=== PATIENT | female | born 1950 | race Caucasian/White ===

== ENCOUNTER 2021-08-26 21:18 | Emergency (ER) | payer MEDICARE, BC ==
[2021-08-26 21:52] VITALS: TEMP 98.2
[2021-08-26 22:53] LABS: Basophils % (A) 1 %; Eosinophils # (A) 0.1 k/uL (0-0.7); Eosinophils % (A) 1 %; HCT 36.4 % (34.0-46.0); Lymphocytes # (A) 1.3 k/uL (1.0-4.8); Lymphocytes % (A) 26 %; MCH 29.1 pg (25.0-35.0); MCHC 32.9 g/dL (31.0-37.0); MCV 88.4 fL (80.0-100.0); Mean Platelet Volume 8.4; Monocytes # (A) 0.3 k/uL (0-1.0); Monocytes % (A) 7 %; Neutrophils # (A) 3.1 k/uL (1.3-7.7); Neutrophils % (A) 63 %; Platelet Count 203 k/uL (150-450); RBC 4.11 m/uL (3.80-5.40); RDW 13.1 % (11.5-15.5); WBC 4.9 k/uL (3.8-10.6)
[2021-08-26 23:05] LABS: ALT 11 U/L (4-34); AST 21 U/L (14-36); African American GFR (CKD) >90 (>60 ml/min/1.73 sqM); Alcohol <10 mg/dL; Alkaline Phosphatase 81 U/L (38-126); Anion Gap 5 mmol/L; Blood Urea Nitrogen 13 mg/dL (7-17); Calcium 9.2 mg/dL (8.4-10.2); Carbon Dioxide 26 mmol/L (22-30); Chloride 105 mmol/L (98-107); Glucose 93 mg/dL (74-99); Non-African American GFR(CKD) 79 (>60 ml/min/1.73 sqM); Potassium 3.7 mmol/L (3.5-5.1); Sodium 136 mmol/L (137-145); Total Bilirubin 0.5 mg/dL (0.2-1.3); Total Protein 6.4 g/dL (6.3-8.2)
--- NOTE | 2021-08-26 23:12 | CT ---
EXAMINATION TYPE: CT brain wo con DATE OF EXAM: 08/26/2021 COMPARISON: HISTORY: Hallucinations and memory loss CT DLP: 1159.4 mGycm Automated exposure control for dose reduction was used. sulci appear normal. There is no mass effect or midline shift. There is no sign of intracranial hemo rrhage. Calvarium is intact. There is mild prominence of the ventricles. IMPRESSION: Minimal cerebral atrophy. No acute intracranial abnormality.
[2021-08-26 23:13] LABS: Partial Thromboplastin Time 24.2 sec (22.0-30.0); Prothrombin Time 10.9 sec (9.0-12.0)
--- NOTE | 2021-08-26 23:14 | XR ---
EXAMINATION TYPE: XR chest 2V DATE OF EXAM: 08/26/2021 COMPARISON: NONE HISTORY: Altered mental status TECHNIQUE: 2 views FINDINGS: Heart is normal. Lungs are clear of infiltrate. No heart failure. There are no hilar masses . Costophrenic angles are clear. IMPRESSION: Normal chest.
--- NOTE | 2021-08-26 23:15 | ED ---
General Adult HPI - General Source: RN notes reviewed <Oliver Farmer - Last Filed: 08/27/21 19:57> - General Source: patient, family Mode of arrival: ambulatory Limitations: no limitations - History of Present Illness -: hour(s) Severity scale (1-10): 0 Consistency: now resolved Improves with: none Worsens with: none Associated Symptoms: denies other symptoms Treatments Prior to Arrival: none <Braeden Rizvi - Last Filed: 08/30/21 12:45> - General Chief complaint: Neuro Symptoms/Deficit Stated complaint: Sent by PCP possible bleed Time Seen by Provider: 08/26/21 22:08 - History of Present Illness Initial comments: P (Oliver Farmer) This patient is 71-year-old woman who presents to have evaluation after she had brief hallucination earlier. The patient had hallucination that she had a brief conversation with her mother. She stated that she thought she saw her mother sitting in the room with her. She went to make tea for her mother and then realized that her mother was not present. Note that the patient's mother is living but was not with her at the time that the episode occurred. The patient discussed this with her physician who recommended that she go and have CAT scan to ensure that she was not having bleeding in her brain. The patient denies headache. She has not had other neurologic symptoms. (Braeden Rizvi) - Related Data Home Medications Medication Instructions Recorded Confirmed Cyanocobalamin (Vitamin B-12) 1,000 mcg PO HS 08/27/21 08/27/21 [Vitamin B-12] Pantoprazole Sodium [Protonix] 40 mg PO HS 08/27/21 08/27/21 Sertraline [Zoloft] 50 mg PO HS 08/27/21 08/27/21 Simvastatin [Zocor] 20 mg PO HS 08/27/21 08/27/21 Vitamin D3 50,000 Iu 1,250 mcg PO FR 08/27/21 08/27/21 prednisoLONE ACETATE 1% OPHTH 1 drop BOTH EYES HS 08/27/21 08/27/21 [Pred Forte 1%] Allergies Allergy/AdvReac Type Severity Reaction Status Date / Time meperidine [From Demerol] Allergy Nausea Verified 08/29/21 13:19 Review of Systems ROS Other: All systems not noted in ROS Statement are negative. <Oliver Farmer - Last Filed: 08/27/21 19:57> ROS Other: All systems not noted in ROS Statement are negative. Constitutional: Denies: fever, chills Eyes: Denies: vision change ENT: Denies: ear pain Respiratory: Denies: cough, dyspnea Cardiovascular: Denies: chest pain, palpitations, edema, syncope Gastrointestinal: Denies: abdominal pain, nausea, vomiting Genitourinary: Denies: dysuria, hematuria Musculoskeletal: Denies: back pain Skin: Denies: rash Neurological: Reports: as per HPI, confusion. Denies: headache, weakness, numbness, paresthesias Psychiatric: Denies: anxiety, depression <Braeden Rizvi - Last Filed: 08/30/21 12:45> ROS Statement: Those systems with pertinent positive or pertinent negative responses have been documented in the HPI. Past Medical History Past Medical History: Eye Disorder Additional Past Medical History / Comment(s): macular degeneration History of Any Multi-Drug Resistant Organisms: None Reported Past Psychological History: No Psychological Hx Reported Smoking Status: Never smoker Past Alcohol Use History: Rare Past Drug Use History: None Reported <Braeden Rizvi - Last Filed: 08/30/21 12:45> General Exam Limitations: no limitations General appearance: alert, in no apparent distress Head exam: Present: atraumatic, normocephalic Eye exam: Present: normal appearance, PERRL, EOMI. Absent: scleral icterus, conjunctival injection, nystagmus ENT exam: Present: normal oropharynx Neck exam: Present: normal inspection, full ROM. Absent: tenderness, meningismus Respiratory exam: Present: normal lung sounds bilaterally. Absent: respiratory distress, wheezes, rales, rhonchi, stridor Cardiovascular Exam: Present: regular rate, normal rhythm, normal heart sounds. Absent: systolic murmur, diastolic murmur, rubs, gallop GI/Abdominal exam: Present: soft. Absent: distended, tenderness, guarding, rebound, rigid, mass Extremities exam: Present: normal inspection, normal capillary refill. Absent: pedal edema, calf tenderness Back exam: Present: normal inspection. Absent: CVA tenderness (R), CVA tenderness (L) Neurological exam: Present: alert, oriented X3, CN II-XII intact. Absent: motor sensory deficit Psychiatric exam: Present: normal affect, normal mood Skin exam: Present: warm, dry, intact, normal color. Absent: rash <Braeden Rizvi - Last Filed: 08/30/21 12:45> Course Vital Signs 08/26/21 08/27/21 08/27/21 21:42 00:07 01:48 Temperature 98.2 F Pulse Rate 76 70 76 Respiratory 18 18 13 Rate Blood Pressure 123/72 110/47 126/68 O2 Sat by Pulse 97 97 Oximetry 08/27/21 02:08 Temperature Pulse Rate 76 Respiratory 15 Rate Blood Pressure 138/77 O2 Sat by Pulse 100 Oximetry EKG Findings - EKG Results: EKG: interpreted by ERMD, sinus rhythm (Rate 69 bpm), normal axis, normal QRS, normal ST/T, no acute changes <Braeden Rizvi - Last Filed: 08/30/21 12:45> Medical Decision Making - Lab Data Result diagrams: 08/26/21 22:41 08/26/21 22:41 <Oliver Farmer - Last Filed: 08/27/21 19:57> - Lab Data Result diagrams: 08/26/21 22:41 08/26/21 22:41 <Braeden Rizvi - Last Filed: 08/30/21 12:45> - Medical Decision Making This patient is a 71-year-old woman who had one episode of hallucination and presents for evaluation. Her workup is unremarkable. The neurologic examination is normal here. Given that she did have remote fall and her physician recommended imaging, we did obtain computed tomography scan. Patient does have prominent ventricles but no definite hydrocephalus. Discussed with patient having appropriate neurologic consultation and suggested MRI and follow- up. We discussed admission, but at this point the patient feels she is stable for outpatient workup and will continue. Discussed return parameters. (Braeden Rizvi) - Lab Data Lab Results 08/26/21 08/26/21 08/26/21 Range/Units 22:41 22:41 22:41 WBC 4.9 (3.8-10.6) k/uL RBC 4.11 (3.80-5.40) m/uL Hgb 12.0 (11.4-16.0) gm/dL Hct 36.4 (34.0-46.0) % MCV 88.4 (80.0-100.0) fL MCH 29.1 (25.0-35.0) pg MCHC 32.9 (31.0-37.0) g/dL RDW 13.1 (11.5-15.5) % Plt Count 203 (150-450) k/uL MPV 8.4 Neutrophils % 63 % Lymphocytes % 26 % Monocytes % 7 % Eosinophils % 1 % Basophils % 1 % Neutrophils # 3.1 (1.3-7.7) k/uL Lymphocytes # 1.3 (1.0-4.8) k/uL Monocytes # 0.3 (0-1.0) k/uL Eosinophils # 0.1 (0-0.7) k/uL Basophils # 0.0 (0-0.2) k/uL PT 10.9 (9.0-12.0) sec INR 1.0 (<1.2) APTT 24.2 (22.0-30.0) sec Sodium (137-145) mmol/L Potassium (3.5-5.1) mmol/L Chloride (98-107) mmol/L Carbon Dioxide (22-30) mmol/L Anion Gap mmol/L BUN (7-17) mg/dL Creatinine (0.52-1.04) mg/dL Est GFR (CKD-EPI)AfAm (>60 ml/min/1.73 sqM) Est GFR (CKD-EPI)NonAf (>60 ml/min/1.73 sqM) Glucose (74-99) mg/dL Calcium (8.4-10.2) mg/dL Total Bilirubin (0.2-1.3) mg/dL AST (14-36) U/L ALT (4-34) U/L Alkaline Phosphatase (38-126) U/L Ammonia (<30) umol/L Troponin I (0.000-0.034) ng/mL Total Protein (6.3-8.2) g/dL Albumin (3.5-5.0) g/dL Urine Color Yellow Urine Appearance Cloudy H (Clear) Urine pH 5.5 (5.0-8.0) Ur Specific [place] 1.017 (1.001-1.035) Urine Protein Negative (Negative) Urine Glucose (UA) Negative (Negative) Urine Ketones 2+ H (Negative) Urine Blood Small H (Negative) Urine Nitrite Negative (Negative) Urine Bilirubin Negative (Negative) Urine Urobilinogen <2.0 (<2.0) mg/dL Ur Leukocyte Esterase Small H (Negative) Urine RBC 4 (0-5) /hpf Urine WBC 19 H (0-5) /hpf Ur Squamous Epith Cells 7 H (0-4) /hpf Urine Bacteria Occasional H (None) /hpf Hyaline Casts 1 (0-2) /lpf Urine Mucus Occasional H (None) /hpf Serum Alcohol mg/dL 08/26/21 08/26/21 08/26/21 Range/Units 22:41 22:41 22:41 WBC (3.8-10.6) k/uL RBC (3.80-5.40) m/uL Hgb (11.4-16.0) gm/dL Hct (34.0-46.0) % MCV (80.0-100.0) fL MCH (25.0-35.0) pg MCHC (31.0-37.0) g/dL RDW (11.5-15.5) % Plt Count (150-450) k/uL MPV Neutrophils % % Lymphocytes % % Monocytes % % Eosinophils % % Basophils % % Neutrophils # (1.3-7.7) k/uL Lymphocytes # (1.0-4.8) k/uL Monocytes # (0-1.0) k/uL Eosinophils # (0-0.7) k/uL Basophils # (0-0.2) k/uL PT (9.0-12.0) sec INR (<1.2) APTT (22.0-30.0) sec Sodium 136 L (137-145) mmol/L Potassium 3.7 (3.5-5.1) mmol/L Chloride 105 (98-107) mmol/L Carbon Dioxide 26 (22-30) mmol/L Anion Gap 5 mmol/L BUN 13 (7-17) mg/dL Creatinine 0.75 (0.52-1.04) mg/dL Est GFR (CKD-EPI)AfAm >90 (>60 ml/min/1.73 sqM) Est GFR (CKD-EPI)NonAf 79 (>60 ml/min/1.73 sqM) Glucose 93 (74-99) mg/dL Calcium 9.2 (8.4-10.2) mg/dL Total Bilirubin 0.5 (0.2-1.3) mg/dL AST 21 (14-36) U/L ALT 11 (4-34) U/L Alkaline Phosphatase 81 (38-126) U/L Ammonia <9 (<30) umol/L Troponin I <0.012 (0.000-0.034) ng/mL Total Protein 6.4 (6.3-8.2) g/dL Albumin 4.0 (3.5-5.0) g/dL Urine Color Urine Appearance (Clear) Urine pH (5.0-8.0) Ur Specific [place] (1.001-1.035) Urine Protein (Negative) Urine Glucose (UA) (Negative) Urine Ketones (Negative) Urine Blood (Negative) Urine Nitrite (Negative) Urine Bilirubin (Negative) Urine Urobilinogen (<2.0) mg/dL Ur Leukocyte Esterase (Negative) Urine RBC (0-5) /hpf Urine WBC (0-5) /hpf Ur Squamous Epith Cells (0-4) /hpf Urine Bacteria (None) /hpf Hyaline Casts (0-2) /lpf Urine Mucus (None) /hpf Serum Alcohol <10 mg/dL Disposition <Oliver Farmer - Last Filed: 08/27/21 19:57> Is patient prescribed a controlled substance at d/c from ED?: No <Braeden Rizvi - Last Filed: 08/30/21 12:45> Clinical Impression: Hallucination Disposition: HOME SELF-CARE Condition: Good Instructions (If sedation given, give patient instructions): Hallucinations (ED) Referrals: Nonstaff,Physician [Primary Care Provider] - 1-2 days Nupur Bundy MD [REFERRING] - 1-2 days
[2021-08-27 01:07] LABS: Appearance,Urine Cloudy (Clear); Bacteria,Urine Occasional /hpf; Bilirubin,Urine Negative (Negative); Blood,Urine Small (Negative); Color,Urine Yellow; Glucose,Urine (UA) Negative (Negative); Hyaline Casts,Urine 1 /lpf (0-2); Ketones,Urine 2+ (Negative); Leukocyte Esterase,Urine Small (Negative); Mucus,Urine Occasional /hpf; Nitrite,Urine Negative (Negative); PH, Urine 5.5 (5.0-8.0); Protein,Urine Negative (Negative); RBC,Urine 4 /hpf (0-5); Specific Gravity,Urine 1.017 (1.001-1.035); Squamous Epithelial Cell,Urine 7 /hpf (0-4); Urobilinogen,Urine <2.0 mg/dL (<2.0); WBC,Urine 19 /hpf (0-5)
[2021-08-27] MEDS ORDERED: SULFAMETH-TMP DS STARTER PACK 2 TAB BTL PO STA (01:48)
[2021-08-27] MEDS ORDERED: SULFAMETHOX-TMP 800-160MG 1 EACH TAB PO STA (01:48)
[2021-08-27 01:49] VITALS: PULSE 76
[2021-08-27 02:09] VITALS: BP 138/77; RESP 15
== END 2021-08-27 02:10 | disposition home or self-care (01) ==
LOC: EC 21:18
DX: R44.3 Hallucinations, unspecified (principal); Z72.89 Other problems related to lifestyle; Z88.5 Allergy status to narcotic agent
CPT/HCPCS: 36415; 93005; 80053; 82140; 84484; 85025; 85610; 85730; 81001; 87086; 71046; 70450; 99285; G0480; 80320

== ENCOUNTER 2021-08-27 18:03 | Inpatient (IN) | payer MEDICARE, BC ==
[2021-08-27] MEDS ORDERED: SODIUM CHLORIDE 0.9% 500 ML 500 ML IV STA (19:43)
[2021-08-27 20:26] LABS: Basophils # (A) 0.1 k/uL (0-0.2); Basophils % (A) 1 %; Eosinophils # (A) 0.1 k/uL (0-0.7); Eosinophils % (A) 2 %; HCT 39.7 % (34.0-46.0); HGB 12.6 gm/dL (11.4-16.0); Lymphocytes # (A) 1.3 k/uL (1.0-4.8); Lymphocytes % (A) 23 %; MCH 27.9 pg (25.0-35.0); MCHC 31.7 g/dL (31.0-37.0); Mean Platelet Volume 8.2; Monocytes # (A) 0.3 k/uL (0-1.0); Monocytes % (A) 6 %; Neutrophils # (A) 3.9 k/uL (1.3-7.7); Neutrophils % (A) 67 %; Platelet Count 222 k/uL (150-450); RBC 4.51 m/uL (3.80-5.40); RDW 13.3 % (11.5-15.5); WBC 5.8 k/uL (3.8-10.6)
[2021-08-27 20:36] LABS: Partial Thromboplastin Time 24.2 sec (22.0-30.0); Prothrombin Time 10.6 sec (9.0-12.0)
[2021-08-27 20:39] LABS: ALT 12 U/L (4-34); AST 22 U/L (14-36); African American GFR (CKD) 71 (>60 ml/min/1.73 sqM); Albumin 4.3 g/dL (3.5-5.0); Alkaline Phosphatase 85 U/L (38-126); Anion Gap 7 mmol/L; Blood Urea Nitrogen 13 mg/dL (7-17); Calcium 9.4 mg/dL (8.4-10.2); Carbon Dioxide 25 mmol/L (22-30); Chloride 105 mmol/L (98-107); Glucose 101 mg/dL (74-99); Magnesium 2.2 mg/dL (1.6-2.3); Non-African American GFR(CKD) 62 (>60 ml/min/1.73 sqM); Potassium 3.8 mmol/L (3.5-5.1); Sodium 137 mmol/L (137-145); Total Bilirubin 0.4 mg/dL (0.2-1.3); Total Protein 6.7 g/dL (6.3-8.2)
--- NOTE | 2021-08-27 21:00 | XR ---
EXAMINATION TYPE: XR chest 1V portable DATE OF EXAM: 08/27/2021 COMPARISON: Yesterday HISTORY: Chest pain TECHNIQUE: FINDINGS: Heart and mediastinum are normal. Lungs are clear. Diaphragm is normal. Bony thorax appears normal. IMPRESSION: Normal chest. No change.
--- NOTE | 2021-08-27 21:59 | ED ---
Neuro HPI - General Source: patient, RN notes reviewed Mode of arrival: ambulatory Limitations: no limitations - History of Present Illness Is the patient presenting with stroke symptoms?: No <Oliver Farmer - Last Filed: 08/27/21 23:50> <Braeden Rizvi - Last Filed: 08/30/21 14:39> - General Chief Complaint: Neuro Symptoms/Deficit Stated Complaint: Revisit Left 08/27 Time Seen by Provider: 08/27/21 19:43 - History of Present Illness Initial Comments: This is a pleasant 71-year-old female who is here from [place] at her [place] in [facility]. Apparently the patient has been having some hallucinations. This is in addition to gait disturbance which the patient has had for quite some time. She is denying any chest pain or shortness of breath. Patient was seen here last night and had a computed tomography scan and workup done. Patient was noted to have a urinary tract infection was started on Bactrim DS. Apparently the patient was walking today when she started having some difficulty with ambulation and a bit of a shuffling gait. Patient's friend brought her back for reevaluation. He has no complaints at the time I'm seeing her. Patient states her mother is 100 years old as of yesterday. Patient states that she was hallucinating that she was in the room with her. No headache, no fever or chills, no changes in vision or hearing, no sore throat or difficulty with speech, no neck pain, no chest pain or shortness of breath, no abdominal pain, no nausea or vomiting, no changes in urination or bowel movements, no numbness or tingling, no extremity pain, no skin rashes or lesions. (Oliver Farmer) - Related Data Home Medications: Home Medications Medication Instructions Recorded Confirmed Cyanocobalamin (Vitamin B-12) 1,000 mcg PO 08/27/21 08/27/21 [Vitamin B-12] Pantoprazole Sodium [Protonix] 40 mg PO 08/27/21 08/27/21 Sertraline [Zoloft] 50 mg PO 08/27/21 08/27/21 Simvastatin [Zocor] 20 mg PO 08/27/21 08/27/21 Vitamin D3 50,000 Iu 1,250 mcg PO 08/27/21 08/27/21 prednisoLONE ACETATE 1% OPHTH 1 drop BOTH EYES HS 08/27/21 08/27/21 [Pred Forte 1%] Allergies/Adverse Reactions: Allergies Allergy/AdvReac Type Severity Reaction Status Date / Time meperidine [From Demerol] Allergy Nausea Verified 08/29/21 13:19 Review of Systems ROS Other: All systems not noted in ROS Statement are negative. <DarianOliver - Last Filed: 08/27/21 23:50> ROS Other: All systems not noted in ROS Statement are negative. <Braeden Rizvi - Last Filed: 08/30/21 14:39> ROS Statement: Those systems with pertinent positive or pertinent negative responses have been documented in the HPI. General Exam Limitations: no limitations General appearance: alert, in no apparent distress Head exam: Present: atraumatic, normocephalic, normal inspection Eye exam: Present: normal appearance, PERRL, EOMI. Absent: scleral icterus, conjunctival injection, periorbital swelling ENT exam: Present: normal exam, normal oropharynx, mucous membranes moist, TM's normal bilaterally, normal external ear exam Neck exam: Present: normal inspection, full ROM. Absent: tenderness, meningismus, lymphadenopathy Respiratory exam: Present: normal lung sounds bilaterally, chest wall tenderness, accessory muscle use. Absent: respiratory distress, wheezes, rales, rhonchi, stridor Cardiovascular Exam: Present: regular rate, normal rhythm, normal heart sounds. Absent: systolic murmur, diastolic murmur, rubs, gallop, clicks GI/Abdominal exam: Present: soft, normal bowel sounds. Absent: distended, tenderness, guarding, rebound, rigid Extremities exam: Present: normal inspection, full ROM, normal capillary refill. Absent: tenderness, pedal edema, joint swelling, calf tenderness Back exam: Present: normal inspection Neurological exam: Present: alert, oriented X3, CN II-XII intact Expanded Patient oriented to: Present: person, place, time Speech: Present: fluid speech Cranial nerves: EOM's Intact: Normal, Gag Reflex: Normal, Tongue Deviation: Normal, Nystagmus: Normal, Facial Sensation: Normal, Facial Palsy with Forehead Movement: Normal, Facial Palsy without Forehead Movement: Normal Cerebellar function: Finger to Nose: Normal, Heel to Richards: Normal, Romberg: Abnormal Left (Patient does have difficulty with Romberg.) Upper motor neuron: Gerardo Neglect: Normal, Pronator Drift: Normal, Babinski Sign: Normal, Sensory Extinction: Normal Sensory exam: Upper Extremity Light Touch: Normal, Upper Extremity Pin Prick: Normal, Lower Extremity Light Touch: Normal, Lower Extremity Pin Prick: Normal Motor strength exam: RUE: 5, LUE: 5, RLE: 5, LLE: 5 Eye Response: (4) open spontaneously Motor Response: (6) obeys commands Verbal Response: (5) oriented [place] Total: 15 Psychiatric exam: Present: normal affect, normal mood. Absent: depressed, agitated Skin exam: Present: warm, dry, intact, normal color. Absent: rash <Oliver Farmer - Last Filed: 08/27/21 23:50> Stroke MDM - Lab Data Result diagrams: 08/27/21 20:16 08/27/21 20:16 - NIH Stroke Scale 1a. Level of Consciousness: (0) alert 1b. LOC Questions: (0) answers correctly 1c. LOC Commands: (0) performs tasks correctly 2. Best Gaze: (0) normal 3. Visual: (0) no visual loss 4. Facial Palsy: (0) normal symmetrical movement 5a. Motor Arm Left: (0) no drift 5b. Motor Arm Right: (0) no drift 6a. Motor Leg Left: (0) no drift 6b. Motor Leg Right: (0) no drift 7. Limb Ataxia: (0) absent 8. Sensory: (0) normal 9. Best Language: (0) no aphasia 10. Dysarthria: (0) normal 11. Extinction/Inattention: (0) no abnormality - EKG Data EKG shows normal: sinus rhythm <Oliver Farmer - Last Filed: 08/27/21 23:50> - Lab Data Result diagrams: 08/27/21 20:16 08/27/21 20:16 <Braeden Rizvi - Last Filed: 08/30/21 14:39> - Lab Data Lab Results 08/27/21 08/27/21 08/27/21 Range/Units 20:16 20:16 20:16 WBC 5.8 (3.8-10.6) k/uL RBC 4.51 (3.80-5.40) m/uL Hgb 12.6 (11.4-16.0) gm/dL Hct 39.7 (34.0-46.0) % MCV 88.0 (80.0-100.0) fL MCH 27.9 (25.0-35.0) pg MCHC 31.7 (31.0-37.0) g/dL RDW 13.3 (11.5-15.5) % Plt Count 222 (150-450) k/uL MPV 8.2 Neutrophils % 67 % Lymphocytes % 23 % Monocytes % 6 % Eosinophils % 2 % Basophils % 1 % Neutrophils # 3.9 (1.3-7.7) k/uL Lymphocytes # 1.3 (1.0-4.8) k/uL Monocytes # 0.3 (0-1.0) k/uL Eosinophils # 0.1 (0-0.7) k/uL Basophils # 0.1 (0-0.2) k/uL PT 10.6 (9.0-12.0) sec INR 1.0 (<1.2) APTT 24.2 (22.0-30.0) sec Sodium 137 (137-145) mmol/L Potassium 3.8 (3.5-5.1) mmol/L Chloride 105 (98-107) mmol/L Carbon Dioxide 25 (22-30) mmol/L Anion Gap 7 mmol/L BUN 13 (7-17) mg/dL Creatinine 0.93 (0.52-1.04) mg/dL Est GFR (CKD-EPI)AfAm 71 (>60 ml/min/1.73 sqM) Est GFR (CKD-EPI)NonAf 62 (>60 ml/min/1.73 sqM) Glucose 101 H (74-99) mg/dL Calcium 9.4 (8.4-10.2) mg/dL Magnesium 2.2 (1.6-2.3) mg/dL Total Bilirubin 0.4 (0.2-1.3) mg/dL AST 22 (14-36) U/L ALT 12 (4-34) U/L Alkaline Phosphatase 85 (38-126) U/L Ammonia (<30) umol/L Troponin I (0.000-0.034) ng/mL Total Protein 6.7 (6.3-8.2) g/dL Albumin 4.3 (3.5-5.0) g/dL Vitamin B12 (200.0-944.0) pg/mL Folate (4.40-31.00) ng/mL TSH 2.070 (0.465-4.680) mIU/L 08/27/21 08/27/21 08/28/21 Range/Units 20:16 20:16 06:15 WBC (3.8-10.6) k/uL RBC (3.80-5.40) m/uL Hgb (11.4-16.0) gm/dL Hct (34.0-46.0) % MCV (80.0-100.0) fL MCH (25.0-35.0) pg MCHC (31.0-37.0) g/dL RDW (11.5-15.5) % Plt Count (150-450) k/uL MPV Neutrophils % % Lymphocytes % % Monocytes % % Eosinophils % % Basophils % % Neutrophils # (1.3-7.7) k/uL Lymphocytes # (1.0-4.8) k/uL Monocytes # (0-1.0) k/uL Eosinophils # (0-0.7) k/uL Basophils # (0-0.2) k/uL PT (9.0-12.0) sec INR (<1.2) APTT (22.0-30.0) sec Sodium (137-145) mmol/L Potassium (3.5-5.1) mmol/L Chloride (98-107) mmol/L Carbon Dioxide (22-30) mmol/L Anion Gap mmol/L BUN (7-17) mg/dL Creatinine (0.52-1.04) mg/dL Est GFR (CKD-EPI)AfAm (>60 ml/min/1.73 sqM) Est GFR (CKD-EPI)NonAf (>60 ml/min/1.73 sqM) Glucose (74-99) mg/dL Calcium (8.4-10.2) mg/dL Magnesium (1.6-2.3) mg/dL Total Bilirubin (0.2-1.3) mg/dL AST (14-36) U/L ALT (4-34) U/L Alkaline Phosphatase (38-126) U/L Ammonia 16 (<30) umol/L Troponin I <0.012 (0.000-0.034) ng/mL Total Protein (6.3-8.2) g/dL Albumin (3.5-5.0) g/dL Vitamin B12 1357.0 H (200.0-944.0) pg/mL Folate (4.40-31.00) ng/mL TSH (0.465-4.680) mIU/L 08/28/21 Range/Units 06:15 WBC (3.8-10.6) k/uL RBC (3.80-5.40) m/uL Hgb (11.4-16.0) gm/dL Hct (34.0-46.0) % MCV (80.0-100.0) fL MCH (25.0-35.0) pg MCHC (31.0-37.0) g/dL RDW (11.5-15.5) % Plt Count (150-450) k/uL MPV Neutrophils % % Lymphocytes % % Monocytes % % Eosinophils % % Basophils % % Neutrophils # (1.3-7.7) k/uL Lymphocytes # (1.0-4.8) k/uL Monocytes # (0-1.0) k/uL Eosinophils # (0-0.7) k/uL Basophils # (0-0.2) k/uL PT (9.0-12.0) sec INR (<1.2) APTT (22.0-30.0) sec Sodium (137-145) mmol/L Potassium (3.5-5.1) mmol/L Chloride (98-107) mmol/L Carbon Dioxide (22-30) mmol/L Anion Gap mmol/L BUN (7-17) mg/dL Creatinine (0.52-1.04) mg/dL Est GFR (CKD-EPI)AfAm (>60 ml/min/1.73 sqM) Est GFR (CKD-EPI)NonAf (>60 ml/min/1.73 sqM) Glucose (74-99) mg/dL Calcium (8.4-10.2) mg/dL Magnesium (1.6-2.3) mg/dL Total Bilirubin (0.2-1.3) mg/dL AST (14-36) U/L ALT (4-34) U/L Alkaline Phosphatase (38-126) U/L Ammonia (<30) umol/L Troponin I (0.000-0.034) ng/mL Total Protein (6.3-8.2) g/dL Albumin (3.5-5.0) g/dL Vitamin B12 (200.0-944.0) pg/mL Folate 7.70 (4.40-31.00) ng/mL TSH (0.465-4.680) mIU/L - Medical Decision Making Patient presents with hallucinations and gait disturbance which has been going on for quite some time. The hallucinations are new. Patient was seen here last night and a normal workup and a normal computed tomography scan. She does raise a suspicion of normal pressure hydrocephalus. Patient has no focal neurologic findings but does have trouble with Romberg test. Patient falls to the left whe n left to her own devices. Patient does have a urinary tract infection and has had one dose of Bactrim. We'll repeat the evening dose here. I suspect this has nothing to the patient's symptomology. However, it is possible. She'll be admitted to medicine. Consultation to neurology will be placed. The case was discussed in detail with ED attending physician. Presentation, findings, treatment plan discussed in detail. This patient was also seen and assessed by the ED attending physician, Dr. Rizvi (Oliver Farmer) 08/27/21 22:03 EKG shows sinus rhythm with a rate of 78. Normal intervals. Nonspecific ST-T wave abnormalities, likely related to artifact. Normal axis. (Oliver Farmer) Past Medical History Past Medical History: Eye Disorder, Osteoarthritis (OA) Additional Past Medical History / Comment(s): macular degeneration, Corneal transplants. History of Any Multi-Drug Resistant Organisms: None Reported Past Surgical History: No Surgical Hx Reported Past Psychological History: No Psychological Hx Reported Smoking Status: Never smoker Past Alcohol Use History: Rare Past Drug Use History: None Reported <Oliver Farmer - Last Filed: 08/27/21 23:50> Course <Oliver Farmer - Last Filed: 08/27/21 23:50> Vital Signs 08/27/21 08/27/21 19:41 23:18 Temperature 98.2 F Pulse Rate 79 77 Respiratory 18 16 Rate Blood Pressure 116/65 137/63 O2 Sat by Pulse 96 Oximetry - Reevaluation(s) Reevaluation #1: 08/27/21 22:31 Medical record is reviewed Symptoms are improved here in the emergency department Patient is informed of results and questions answered Patient in no distress Repeat neurological exam is unchanged. Patient alert and oriented 4, cranial nerves II through XII intact. (Oliver Farmer) - Consultations Consultation #1: Case discussed with from [facility] since admission the Patient. (Oliver Farmer) Disposition Is patient prescribed a controlled substance at d/c from ED?: No Time of Disposition: 22:31 Decision to Admit Reason: Admit from EC Decision Time: : <Oliver Farmer - Last Filed: 08/27/21 23:50> <Braeden Rizvi - Last Filed: 08/30/21 14:39> Clinical Impression: Hallucinations, Gait disturbance, Urinary tract infection Disposition: ADMITTED IP TO THIS HOSP Condition: Stable
[2021-08-27] MEDS ORDERED: SULFAMETHOX-TMP 800-160MG 1 EACH TAB PO STA (22:36)
[2021-08-27] MEDS ORDERED: NALOXONE 0.4 MG/ML 1 ML VIAL IV PRN (23:45)
[2021-08-27] MEDS ORDERED: ACETAMINOPHEN TAB 325 MG TAB PO PRN (23:45)
[2021-08-27] MEDS ORDERED: ONDANSETRON 4 MG/2 ML VIAL IVP PRN (23:45)
[2021-08-27] MEDS ORDERED: MELATONIN 3 MG TABLET PO PRN (23:45)
[2021-08-28] MEDS: SODIUM CHLORIDE 0.9% 1,000 ML IV SCH ×2 (01:56→20:15)
[2021-08-28] MEDS: HEPARIN SODIUM,PORCINE/PF 5,000 UNIT/0.5 ML SYRINGE SQ SCH ×4 (01:56→20:15)
--- NOTE | 2021-08-28 04:09 | P.HPIM ---
History of Present Illness H&P Date: 08/28/21 Patient is 71-year-old female with a PMH of hyperlipidemia, resident of [place], currently visiting her summer cabin in [place]. Patient reports that over the past 1-2 days, she has not felt quite like herself and has been seeing people that were not there. She reports hallucinating that her mother who is alive but lives in a different state was with her at the cabin. The patient had presented to the emergency room yesterday where she underwent a CT brain that was unremarkable, although she was noted to have a UTI for which she was started on Bactrim and discharged home. The patient however returned to the emergency room due to ongoing gait disturbance. Apparently the patient has been experiencing gradually worsening gait disturbance over the past several months. She reported feeling at her baseline at the time of interview however. Denied experiencing headaches, weakness, numbness, tingling. Also denied chest discomfort, shortness of breath, fever, chills, abdominal pain, diarrhea. Laboratory evaluation was unremarkable. Review of systems: Pertinent positives and negatives as discussed in HPI, a complete review of systems was performed and all other systems are negative. Physical examination: General: non toxic, no distress, appears at stated age, normal weight Derm: no unusual rashes/lesions no unusual ecchymoses, warm, dry Head: atraumatic, normocephalic, symmetric Eyes: EOMI, no lid lag, anicteric sclera, pupils equal round reactive to light ENT: Nose and ears atraumatic, no thrush, no pharyngeal erythema Neck: No thyromegaly, no cervical lymphadenopathy, trachea midline, supple Mouth: no lip lesion, mucus membranes moist Cardiovascular: S1S2 reg, no murmur, positive posterior tibial pulse bilateral, no edema, capillary refill less than 2 seconds Lungs: CTA bilateral, no rhonchi, no rales , no accessory muscle use Abdominal: soft, nontender to palpation, no guarding, no appreciable organomegaly, normal bowel sounds Ext: no gross muscle atrophy, muscle strength 5 out of 5 in all 4 extremities grossly, no contractures, Neuro: CN II-XI grossly intact, light touch intact all 4 extremities, finger to nose within normal limits, Romberg positive Psych: Alert, oriented, appropriate affect Assessment/plan Gait impairment, Romberg test positive -Check B12 levels -PT and neurology consults -Fall precautions Chronic conditions: Hyperlipidemia -Continue with home meds DVT prophylaxis -Heparin subq The patient is admitted with an anticipated less than 2 midnight stay for evaluation of gait impairement CODE STATUS: Full Code Discussed with: Patient Anticipated discharge date: in am Anticipated discharge place: Home Past Medical History Past Medical History: Eye Disorder, Osteoarthritis (OA) Additional Past Medical History / Comment(s): macular degeneration, Corneal transplants. History of Any Multi-Drug Resistant Organisms: None Reported Past Surgical History: No Surgical Hx Reported Past Psychological History: No Psychological Hx Reported Smoking Status: Never smoker Past Alcohol Use History: Rare Past Drug Use History: None Reported Medications and Allergies Home Medications Medication Instructions Recorded Confirmed Type Cyanocobalamin (Vitamin B-12) 1,000 mcg PO HS 08/27/21 08/27/21 History [Vitamin B-12] Meloxicam [Mobic] 15 mg PO HS 08/27/21 08/27/21 History Pantoprazole Sodium [Protonix] 40 mg PO HS 08/27/21 08/27/21 History Sertraline [Zoloft] 50 mg PO HS 08/27/21 08/27/21 History Simvastatin [Zocor] 20 mg PO HS 08/27/21 08/27/21 History Vitamin D3 50,000 Iu 1,250 mcg PO FR 08/27/21 08/27/21 History prednisoLONE ACETATE 1% OPHTH 1 drop BOTH EYES HS 08/27/21 08/27/21 History [Pred Forte 1%] Allergies Allergy/AdvReac Type Severity Reaction Status Date / Time meperidine [From Demerol] Allergy Nausea Verified 08/27/21 23:08 Physical Exam Vitals: Vital Signs Temp Pulse Pulse Resp BP BP Pulse Ox 08/28/21 01:09 97.8 F 82 18 98/52 97 08/27/21 23:18 77 16 137/63 96 08/27/21 19:41 98.2 F 79 18 116/65 Intake and Output 08/27/21 08/27/21 08/28/21 14:59 22:59 06:59 Other: Voiding Method Toilet Weight 99.79 kg 99.79 kg Results CBC & Chem 7: 08/27/21 20:16 08/27/21 20:16 Labs: Abnormal Lab Results - Last 24 Hours (Table) 08/27/21 Range/Units 20:16 Glucose 101 H (74-99) mg/dL
--- NOTE | 2021-08-28 09:53 | P.CNNES ---
History of Present Illness Consult date: 08/28/21 Requesting physician: Oliver Farmer Reason for Consult: hallucination, gait disturbance History of Present Illness: This is a 71-year-old woman who presented emergency department on 08/27/2021 because of hallucination as well as gait disturbance. Patient resides in [place] and she went to [facility] [place] since she has a cottage recently. So about 2 days ago she was in her cottage and she noticed that the she was seeing her mom and the patient was not acting herself and she stated that the she was making breakfast for her mom even though she was not their and patient felt off. She said that she saw her again late 2 days ago. She said her mom was not their even though she's been seen her in her cottage. Her mom was communicating to her while she was having visual hallucination. She denies any visual disturbance like this prior to that. She said the yesterday while she was walk- in she was wobbly and was walking fast. She said that she's been having some gait disturbance for the last 9 months. She denies of any focal weakness, numbness, any visual disturbance, any headache, and he had trauma. She denies of any resting tremor. She denies any further episodes of visual hallucination. She presented to our ED on 08/26/2021 and they felt that patient had ureter tract infection and was discharged on Bactrim. She said that her father and his late age had some tremor and was told that because of his age but she described as resting tremor and he shuffled when walked. He was not give diagnosis of Parkinson's disease Some of the workup during this hospital visit consisted of: Vital signs on presentation is normal and the patient is afebrile CBC with differential, chemistry panel, PT PTT and INR is within normal limits Ammonia level is 16 TSH is 2.070, AST ALT is within normal limits She had a CT of the head on 08/26/2021 and it's reported as minimal cerebral atrophy. No acute intracranial abnormality. Urinalysis on 08/26/2021 was questionable urinary tract infection that acute in which the leukocyte esterase was small, urine bacteria was occasional and the urine appearance looked cloudy. Review of Systems Review of system: The 12 point system was reviewed and apparent positive and negative per HPI. Past Medical History Past Medical History: Eye Disorder, Osteoarthritis (OA) Additional Past Medical History / Comment(s): macular degeneration, Corneal transplants. History of Any Multi-Drug Resistant Organisms: None Reported Past Surgical History: No Surgical Hx Reported Past Psychological History: No Psychological Hx Reported Smoking Status: Never smoker Past Alcohol Use History: Rare Past Drug Use History: None Reported Medications and Allergies Home Medications Medication Instructions Recorded Confirmed Type Cyanocobalamin (Vitamin B-12) 1,000 mcg PO HS 08/27/21 08/27/21 History [Vitamin B-12] Meloxicam [Mobic] 15 mg PO HS 08/27/21 08/27/21 History Pantoprazole Sodium [Protonix] 40 mg PO HS 08/27/21 08/27/21 History Sertraline [Zoloft] 50 mg PO HS 08/27/21 08/27/21 History Simvastatin [Zocor] 20 mg PO HS 08/27/21 08/27/21 History Vitamin D3 50,000 Iu 1,250 mcg PO FR 08/27/21 08/27/21 History prednisoLONE ACETATE 1% OPHTH 1 drop BOTH EYES HS 08/27/21 08/27/21 History [Pred Forte 1%] Allergies Allergy/AdvReac Type Severity Reaction Status Date / Time meperidine [From Demerol] Allergy Nausea Verified 08/27/21 23:08 Physical Examination - Vital Signs Vital Signs: Vital Signs Temp Pulse Pulse Resp BP BP Pulse Ox 08/28/21 01:09 97.8 F 82 18 98/52 97 08/27/21 23:18 77 16 137/63 96 08/27/21 19:41 98.2 F 79 18 116/65 Intake and Output 08/27/21 08/28/21 08/28/21 22:59 06:59 14:59 Other: Voiding Method Toilet # Voids 0 Weight 99.79 kg 99.79 kg GENERAL: The patient is lying in bed and is not in acute distress. CHEST: The heart rate is regular rate rhythm. No murmurs to auscultation. No carotid bruit bilaterally. LUNG: Clear to auscultation bilaterally no wheezing noted throughout. Not labored breathing. ABDOMEN/GI: Bowel sounds present in all 4 quadrants. No tenderness to palpation throughout. NEUROLOGICAL: Higher mental function: The patient is awake, alert, oriented to self, place and time. Patient is following commands. No aphasia and no neglect. Cranial nerves: The pupils are round, equal and reactive to light and accommodation. Visual nolasco are full to confrontation throughout. Extraocular movement is intact no nystagmus is noted. Facial sensation is normal to touch throughout. The facial strength is normal throughout. Hearing is Mildly decrease bilaterally to hand rub. Tongue is midline and moved [id number] without any difficulty. No dysarthria is noted. Shoulder shrug is normal bilaterally. Motor: Gait is somewhat unsteady with turn but not swaying, not shuffling. The strength is 5 over 5 throughout. Normal tone and bulk. No resting tremor. Cerebellum: Normal finger to nose heel to spear bilaterally. Sensation: Sensation is normal to touch throughout. Reflexes (right/left): Right brachioradialis is 3+. Otherwise 2+ throughout and ankles are 1+ bilaterally.. Plantars are mute bilaterally. Results - Laboratory Findings CBC and BMP: 08/27/21 20:16 08/27/21 20:16 Abnormal Lab Findings: Abnormal Labs 08/27/21 20:16 Glucose 101 H Assessment and Plan Assessment: Acute Visual hallucination about 2 days ago. Unsure exact cause. Not sure if due to ?acute UTI. Cannot rule out Neurodegenerative disorder (such as Lewy body dementia). Patient does not have Parkinson's disease from history or ph ysical exam. Gait disturbance for past 9 month (has hyperreflexia over the right brachioradialis): Rule out cervical myelopathy Possible acute urinary tract infection Possibly her father had Parkinson's disease from her description Plan: MRI the brain is ordered by the ED team and is pending Ordered MRI C-spine I ordered a routine EEG Vitamin B12 is ordered an addition I ordered folate level. Physical therapy consulted Patient does not have Parkinson's disease from the history or physical exam. I cannot rule out neurodegenerative disease such as Lewy body dementia that's new onset but I think the patient needs to follow up as an outpatient for further monitoring. Her visual hallucination could be isolated due to questionable acute UTI. We'll defer the rest of medical management to primary team Upon discharge, the patient needs to follow-up with neurologist as outpatient within 1-2 weeks. The plan is discussed with patient and primary team. Thank you for the consultation. Cameron Salas M.D. Neuro-hospitalist Time with Patient: Greater than 30
--- NOTE | 2021-08-28 17:19 | MR ---
EXAMINATION TYPE: MR brain wo/w cspine wo DATE OF EXAM: 08/28/2021 COMPARISON: CT brain 08/26/2021 HISTORY: gait abnormalities and visual disturbances, hallucinations. TECHNIQUE: Multiplanar, multisequence images of the brain and brainstem is performed without and with IV contras t, utilizing 10 mL intravenous Gadavist, multiplanar multisequence imaging through the cervical spine . FINDINGS: Brain MRI: Diffusion weighted images demonstrate no evidence of a recent infarct or other diffusion a bnormality. There is no extra-axial fluid collection. Confluent periventricular and pericallosal hy perintensity on inversion recovery T2-weighted sequences, additional scattered hyperintensities in th e periventricular and subcortical white matter are noted The ventricular system and cisternal spaces are stable in size and appearance. The brain volume is age appropriate, there is cortical atrophy. Midline structures demonstrate normal morphology. The craniocervical junction appears within normal limits. Post contrast images demonstrate no abnormal enhancement. The dural venous sinuses appear pa tent. The visualized sinuses are clear and the globes are intact. IMPRESSION: Correlate for possible normal pressure hydrocephalus. There are probable changes of age-r elated atrophy and chronic small vessel ischemia additionally Cervical spine MRI: Cervical vertebral bodies show preserved height, alignment, there is multilevel s pondylosis with endplate discogenic marrow signal change. There is some marrow signal change present at the base of the dens, segmentation anomaly is favored over fracture. There is multilevel spondylos is. Some loss of disc height is present at C6-7, some increased signal is present along the disc at C 3-4 which may be due to calcification. There is no significant spinal stenosis. C4-5 shows uncovertebral joint hypertrophy change causing some foraminal encroachment greater on the right. Posterior extension endplate disc complex causes only minimal anterior mass effect on the thec al sac. C5-6 also show some uncovertebral joint hypertrophy resulting in some left-sided foraminal en croachment. No evident disc herniation. C6-7 shows uncovertebral joint hypertrophy and facet arthropa thy resulting in some left-sided foraminal encroachment. Remaining disc spaces are essentially unrema rkable. Cervical cord signal is within normal limits. IMPRESSION: Degenerative disc disease. Consider cervical spine CT for correlation at the base of the dens region. Multilevel foraminal encroachment, mild degenerative disc disease, facet arthropathy.
--- NOTE | 2021-08-28 18:28 | P.PN ---
Subjective Progress Note Date: 08/28/21 Hospital Course: Patient is 71-year-old female who resides in [place] and is currently visiting [place] staying in her summer cabin. Patient has a past medical history of hyperlipidemia. She reports a family history of Parkinson's disease. Patient reports 2 days ago she had an episode in which she was having visual hallucinations and seeing her mother. She reports she came into the emergency department was evaluated. She had a CT on her head which was negative for acute process and was found to have a UTI and started on Bactrim and discharged home. Patient states she had been on the Bactrim for 2 days and yesterday she noticed she began to have a significantly worsened gait disturbances. Patient reports she has been having issues with proprioception and balance with unsteady gait for the past 6-8 weeks but states this significantly worsened yesterday. Patient states it was almost as though she was shuffling trying to prevent herself from falling. Patient again underwent full evaluation in the emergency department. CBC, CMP, and coags unremarkable. Patient was admitted under our services with consultation to neurology. Physical examination: General: non toxic, no distress, appears at stated age Derm: warm, dry Head: atraumatic, normocephalic, symmetric Eyes: EOMI, no lid lag, anicteric sclera Mouth: no lip lesion, mucus membranes moist Cardiovascular: S1S2 reg, no murmur, positive posterior tibial pulse bilateral, Lungs: CTA bilateral, no rhonchi, no rales , no accessory muscle use Abdominal: soft, nontender to palpation, no guarding, no appreciable organomegaly Ext: no gross muscle atrophy, no edema, no contractures Neuro: CN II-XI grossly intact, no focal neuro deficits Psych: Alert, oriented, appropriate affect Assessment and plan of care: Gait impairment, Romberg test positive -B12 level 1357.0 -PT/OT consult -Neurology consulted -MRI brain completed revealing concerns of normal pressure hydrocephalus with probable changes of age-related atrophy and chronic small vessel ischemia. -MRI cervical spine revealing degenerative disc disease with multilevel foraminal encroachment, mild degenerative disc disease, and facet arthropathy. -Fall precautions Chronic conditions: Hyperlipidemia -Continue with home medication: Atorvastatin 10 mg nightly CODE STATUS: Full Code DVT prophylaxis: Heparin Discussed with: Patient Anticipated discharge date:tomorrow morning Anticipated discharge place: Home A total of 31 minutes was spent on the care of this complex patient more than 50% of the time was spent in counseling and care coordination. I reviewed the documentation as provided by the LORENA above, who is the original author of this note. I agree with the documented assessment and plan, with the following changes: none Objective - Vital Signs Vital signs: Vital Signs Temp 98.0 F 08/28/21 07:14 Pulse 71 08/28/21 07:14 Resp 16 08/28/21 07:14 BP 102/61 08/28/21 07:14 Pulse Ox 95 08/28/21 07:14 FiO2 Intake & Output 08/27/21 08/28/21 08/28/21 18:59 06:59 18:59 Intake Total 118 Balance 118 Weight 99.79 kg Intake: Oral 118 Other: Voiding Method Toilet # Voids 0 3 - Labs CBC & Chem 7: 08/27/21 20:16 08/27/21 20:16 Labs: Abnormal Lab Results - Last 24 Hours (Table) 08/27/21 08/28/21 Range/Units 20:16 06:15 Glucose 101 H (74-99) mg/dL Vitamin B12 1357.0 H (200.0-944.0) pg/mL
[2021-08-28] MEDS ORDERED: ATORVASTATIN 10 MG TAB PO SCH (21:00)
[2021-08-28] MEDS ORDERED: SERTRALINE 50 MG TAB PO SCH (21:00)
[2021-08-28] MEDS ORDERED: PANTOPRAZOLE 40 MG TABLET PO SCH (21:00)
[2021-08-29 09:15] VITALS: RESP 16
[2021-08-29] MEDS: HEPARIN SODIUM,PORCINE/PF 5,000 UNIT/0.5 ML SYRINGE SQ SCH ×2 (10:15→16:24)
--- NOTE | 2021-08-29 13:21 | EEG ---
ELECTROENCEPHALOGRAM REPORT DATE OF SERVICE: 08/29/2021. CLINICAL HISTORY: This is a 71-year-old woman with visual hallucination. The video EEG is obtained to evaluate for seizure epileptiform activity. RELEVANT MEDICATION: The patient is not on any antiepileptic drug. EEG TYPE: A routine 21 channel EEG is performed with video using the 10/20 electrode placement system. DESCRIPTION: Wakefulness is only obtained. During awake state, the posterior-dominant rhythm consists of low to moderate voltage of 8-8.5 hertz activity that is well modulated well sustained. There is no physiological sleep architecture seen. There is no focal slowing. Interictal and ictal is none. ACTIVATION PROCEDURE: Photic stimulation did not evoke a posterior driving response. There is no abnormality during the photic stimulation. Hyperventilation is not performed. CLINICAL INTERPRETATION: This is a normal routine EEG. There is no focal slowing, epileptiform discharge or seizure on the EEG. Clinical correlation is recommended. CHRIS / CELESTE: [id number] / MTDD
[2021-08-29 13:23] VITALS: BP 138/63; PULSE 73; TEMP 98
--- NOTE | 2021-08-29 13:50 | P.PCN ---
Date of Procedure: 08/29/21 Procedure(s) Performed: Preoperative diagnosis: Normal pressure hydrocephalus Post operative diagnoses: Normal pressure hydrocephalus Procedure= large-volume lumbar puncture Anesthesia local infiltration with lidocaine 1% 3 mL. Condition: stable Complication: none. Description of the procedure procedure risk and benefits discussed with the patient and family, consent signed. Patient and the procedure area placed in lateral position ( right side down ), back prepped with chlorhexidine 3 times been local infiltration of the skin and subcutaneous tissue with lidocaine 1% 2 mL for skin and subcu interstitial frustrations at L4 5 levels then 22-gauge Quincke-type needle advanced slowly at L4- 5 interlaminar space there was positive cerebrospinal fluid which was clear, no heme, no paresthesia ,total of 30 ML of clear cerebrospinal fluid collected in 4 different tubes 7-8 mL in each, then the needle removed and a Band-Aid applied and patient tolerated the procedure well without any complications. opening pressure= 19 cm of water. Closing pressure = 9 cm of water
--- NOTE | 2021-08-29 16:40 | P.PN ---
Subjective Progress Note Date: 08/29/21 The patient is seen at bedside and she denies any further visual hallucination. I spoke with the patient daughter via phone (Hari) with patient's request and feels the patient has been having short term memory for past two years and possibly worsening over 1 year. She has been having difficulty walking and felt unsteady for past 4-6 months. Denies any urinary incontinence. Objective - Vital Signs Vital signs: Vital Signs Temp 98.0 F 08/29/21 13:13 Pulse 73 08/29/21 14:00 Resp 16 08/29/21 14:00 BP 138/63 08/29/21 13:13 Pulse Ox 98 08/29/21 13:13 FiO2 Intake & Output 08/28/21 08/29/21 08/29/21 18:59 06:59 18:59 Intake Total 118 118 Balance 118 118 Intake: Oral 118 118 Other: Voiding Method Toilet # Voids 3 1 3 - Exam GENERAL: The patient is lying in bed and is not in acute distress. NEUROLOGICAL: Higher mental function: The patient is awake, alert, oriented to self, place and time. Patient is following commands. No aphasia and no neglect. Cranial nerves: The pupils are round, equal and reactive to light and accommodation. Visual nolasco are full to confrontation throughout. Extraocular movement is intact no nystagmus is noted. Facial sensation is normal to touch throughout. The facial strength is normal throughout. Hearing is Mildly decrease bilaterally to hand rub. Tongue is midline and moved [id number] without any difficulty. No dysarthria is noted. Shoulder shrug is normal b ilaterally. Motor: Gait is high wide steppage gait and unsteady making turns The strength is 5 over 5 throughout. Normal tone and bulk. No resting tremor. Cerebellum: Normal finger to nose heel to spear bilaterally. Sensation: Sensation is normal to touch throughout. Reflexes (right/left): Right brachioradialis is 3+. Otherwise 2+ throughout and ankles are 1+ bilaterally.. Plantars are mute bilaterally. SOME OF THE WORK-UP IN THE HOSPITAL CONSISTED OF: Vitamin B12: 1357 Serum folate is 7.70 TSH: 2.070 Ammonia: 16 Ammonia level is 16 TSH is 2.070, AST ALT is within normal limits She had a CT of the head on 08/26/2021 and it's reported as minimal cerebral atrophy. No acute intracranial abnormality. She had MRI Brain which is reported correlate for possible normal pressure hydrocephalus. There are probable changes of age related atropy and chronic small vessel ischemia. I personally reviewed MRI Brain and agree with report. MRI Cervical spine is reported as degenerative disc disease. Consider cervical spine for corrleation at the base of dens region. Multilevel foraminal enroachement, mild degnerative disc disease and face arthropathy. Routine EEG today: Normal. There is no focal slowing, epileptiform discharges or seizure on the EEG. - Labs CBC & Chem 7: 08/27/21 20:16 08/27/21 20:16 Assessment and Plan Assessment: Likely Normal pressure hydrocephalus (has been having confusion for past 2 years, unsteady gait for past 4-6 months). Visual hallucination could be cause from NPH (rare cause according to literature). Transient episode of visual hallucination Plan: I consulted anesthesiology team and notified them to obtain a large volume tap of 30CC. If improvement recommend following-up with neurosurgeon for COMMUNITY LEADER shunt. Regarding low normal folate started on folic acid 1mg daily. Recommend neuropsych evaluation as ouptatient. Continue neuro-checks. Will obtain CT cervical to assess base of dens as per MRI. Physical therapy is consulted. Will defer the rest of medical management to the primary team. Upon discharge, the patient needs to follow-up with neurologist within 1-2 weeks and neurosurgeon. The plan is discussed extensively with patient, her daughter (Hari) via phone and primary team. UPDATE: Patient received 30cc removed. Her opening pressure was 19cm water and closing is 9cm water. I examined her walking after and her feels her walking is better. She continues to have wide base gait but there is improvement in her walking. Also no difficulty making turns. Nurse also agrees that her gait has improved. Recommend to pursue to follow-up with neurosurgeon as outpatient and obtain COMMUNITY LE[employer]ER shunt. She will follow-up with me in clinic for neurological care. Otherwise no additional work-up and patient is clear for discharge upon CT cervical spine read. Cameron Salas M.D. Neuro-hospitalist Time with Patient: Greater than 30
[2021-08-29] MEDS ORDERED: FOLIC ACID 1 MG TAB PO SCH (17:00)
--- NOTE | 2021-08-29 17:10 | P.PN ---
Subjective Progress Note Date: 08/29/21 Hospital Course: Patient is 71-year-old female who resides in [place] and is currently visiting [place] staying in her summer cabin. Patient has a past medical history of hyperlipidemia. She reports a family history of Parkinson's disease. Patient reports 2 days ago she had an episode in which she was having visual hallucinations and seeing her mother. She reports she came into the emergency department was evaluated. She had a CT on her head which was negative for acute process and was found to have a UTI and started on Bactrim and discharged home. Patient states she had been on the Bactrim for 2 days and yesterday she noticed she began to have a significantly worsened gait disturbances. Patient reports she has been having issues with proprioception and balance with unsteady gait for the past 6-8 weeks but states this significantly worsened yesterday. Patient states it was almost as though she was shuffling trying to prevent herself from falling. Patient again underwent full evaluation in the emergency department. CBC, CMP, and coags unremarkable. Patient was admitted under our services with consultation to neurology. MRI brain was completed revealing concerns of normal pressure hydrocephalus with probable changes of age-related atrophy and chronic small vessel ischemia. MRI cervical spine revealing degenerative disc disease with multilevel foraminal encroachment, mild degenerative disc disease, and mild facet arthropathy. Discussed findings with neurologist. Neurology recommending patient be transferred to inpatient and consult be placed to anesthesiology for large volume lumbar puncture secondary to normal pressure hydrocephalus. Physical examination: Patient seen and fully evaluated at bedside this morning. Patient ambulatory in room and appeared to be doing well. Patient reports she continues to have intermittent episodes of difficulties with her gait and ambulation. Patient denies having any other complaints or concerns at this time. Neurology recommending patient be transferred to inpatient and consult be placed to ane sthesiology for large volume lumbar puncture secondary to normal pressure hydrocephalus. General: non toxic, no distress, appears at stated age Derm: warm, dry Head: atraumatic, normocephalic, symmetric Eyes: EOMI, no lid lag, anicteric sclera Mouth: no lip lesion, mucus membranes moist Cardiovascular: S1S2 reg, no murmur, positive posterior tibial pulse bilateral, Lungs: CTA bilateral, no rhonchi, no rales , no accessory muscle use Abdominal: soft, nontender to palpation, no guarding, no appreciable organomegaly Ext: no gross muscle atrophy, no edema, no contractures Neuro: CN II-XI grossly intact, no focal neuro deficits Psych: Alert, oriented, appropriate affect Assessment and plan of care: Gait impairment, Romberg test positive -B12 level 1357.0 -PT/OT consult -Neurology following -Anesthesiology consulted for large volume a lumbar puncture secondary to normal pressure hydrocephalus -MRI brain completed revealing concerns of normal pressure hydrocephalus with probable changes of age-related atrophy and chronic small vessel ischemia. -MRI cervical spine revealing degenerative disc disease with multilevel foraminal encroachment, mild degenerative disc disease, and facet arthropathy. -Fall precautions Chronic conditions: Hyperlipidemia -Continue with home medication: Atorvastatin 10 mg nightly CODE STATUS: Full Code DVT prophylaxis: Heparin Discussed with: Patient Anticipated discharge date:tomorrow morning Anticipated discharge place: Home A total of 33 minutes was spent on the care of this complex patient more than 50% of the time was spent in counseling and care coordination. I reviewed the documentation as provided by the LORENA above, who is the original author of this note. I agree with the documented assessment and plan, with the following changes: None Objective - Vital Signs Vital signs: Vital Signs Temp 98.0 F 08/29/21 13:13 Pulse 73 08/29/21 14:00 Resp 16 08/29/21 14:00 BP 138/63 08/29/21 13:13 Pulse Ox 98 08/29/21 13:13 FiO2 Intake & Output 08/28/21 08/29/21 08/29/21 18:59 06:59 18:59 Intake Total 118 118 Balance 118 118 Intake: Oral 118 118 Other: Voiding Method Toilet # Voids 3 1 3 - Labs CBC & Chem 7: 08/27/21 20:16 08/27/21 20:16
--- NOTE | 2021-08-29 17:26 | CT ---
EXAMINATION TYPE: CT cervical spine wo con DATE OF EXAM: 08/29/2021 COMPARISON: MR scan yesterday HISTORY: assess cervical base of the dens as per mri CT DLP: 842 mGycm Automated exposure control for dose reduction was used. Images obtained from the skull base to T1 vertebra without contrast. The cervical vertebra have normal alignment. There is mild narrowing at C3-4 and C6-7 disc spaces. Th ere is mild spurring of the endplates. There is mild multilevel cervical facet arthropathy. No compre ssion fracture. No subluxation. There is minimal cystic changes at the base of the dens. No fracture line seen. No definite break in the cortex. Prevertebral soft tissues are intact. IMPRESSION: There is 13 mm area of cystic change at the base of the odontoid process without evidence of cortical fracture. Clinical significance is not clear. The margins are sharp and I do not suspect a neoplasti c process. This could relate to old trauma. No acute fracture seen. Spondylotic changes.
--- NOTE | 2021-08-29 19:04 | P.DS ---
Providers Date of admission: 08/29/21 09:59 Expected date of discharge: 08/29/21 Attending physician: Angelic Mc MD Consults: 08/27/21 23:45 Consult Physician Urgent Consulting Provider: Cameron Salsa Consult Reason/Comments: Hallucination, gait disturbance Do you want consulting provider notified?: Yes, Notify in am 08/29/21 10:01 Consult to Anesthesia Routine Consulting Provider: Anesthesia,Services Consult Reason/Comments: Large volume lumbar puncture secondary to NPH 08/29/21 12:46 Consult to Anesthesia Routine Consulting Provider: Anesthesia,Services Consult Reason/Comments: lumbar puncture. Large volume tap of 30cc Primary care physician: Physician Nonstaff Hospital Course: Discharge Diagnosis: Normal pressure hydrocephalus resulting in confusion/memory impairment 2 years, unsteady gait, and an episode of visual hallucinations. Patient underwent LP for large volume tap of 30 mL, neurology clearing patient for discharge and recommending outpatient follow-up with neurosurgeon upon return to [place] Gait impairment, likely secondary to normal pressure hydrocephalus Hyperlipidemia. Continue with home medication: Atorvastatin 10 mg nightly Hospital Course: Patient is 71-year-old female who resides in [place] and is currently visiting [place] staying in her summer cabin. Patient has a past medical history of hyperlipidemia. She reports a family history of Parkinson's disease. Patient reports 2 days ago she had an episode in which she was having visual hallucinations and seeing her mother. She reports she came into the emergency department was evaluated. She had a CT on her head which was negative for acute process and was found to have a UTI and started on Bactrim and discharged home. Patient states she had been on the Bactrim for 2 days and yesterday she noticed she began to have a significantly worsened gait disturbances. Patient reports she has been having issues with proprioception and balance with unsteady gait for the past 6-8 weeks but states this significantly worsened yesterday. Patient states it was almost as though she was shuffling trying to prevent herself from falling. Patient again underwent full evaluation in the emergency department. CBC, CMP, and coags unremarkable. Patient was admitted under our services with consultation to neurology. MRI brain was completed revealing concerns of normal pressure hydrocephalus with probable changes of age-related atrophy and chronic small vessel ischemia. MRI cervical spine revealing degenerative disc disease with multilevel foraminal encroachment, mild degenerative disc disease, and mild facet arthropathy. Discussed findings with neurologist. Neurology recommending patient be transferred to inpatient and consult be placed to anesthesiology for large volume lumbar puncture secondary to normal pressure hydrocephalus. Patient underwent large-volume LP with removal of 30 mL's. Patient then underwent CT cervical spine revealing a 13 mm area of cystic change at the base of the odontoid process without evidence of cervical cortical fracture with no acute f ractures noted, imaging reviewed by neurologist. Neurology clearing patient for discharge at this time recommending outpatient follow-up with neurosurgeon upon return to [place]. Patient is medically clear. Vital signs unremarkable. Patient currently denying any complaints and ambulatory with a steady gait. Patient instructed it is of utmost importance to closely follow post-lumbar puncture discharge instructions and avoid any NSAID use and/or heavy lifting. Patient instructed if she noted any dizziness, lightheadedness, headache, changes in vision, or experiences any redness or drainage from LP site she will need to seek medical attention immediately. Patient medically stable for discharge home with her family at this time. A total of 34 minutes of time were spent preparing this complex discharge summary. Pt was discharged on 08/29/21 at 7:02 PM. I reviewed the documentation as provided by the LORENA above, who is the original author of this note. I agree with the documented assessment and plan, with the following changes: None Patient Condition at Discharge: Stable Plan - Discharge Summary New Discharge Prescriptions: Continue prednisoLONE ACETATE 1% OPHTH [Pred Forte 1%] 1 drop BOTH EYES HS Sertraline [Zoloft] 50 mg PO HS Pantoprazole Sodium [Protonix] 40 mg PO HS Vitamin D3 50,000 Iu 1,250 mcg PO FR Cyanocobalamin (Vitamin B-12) [Vitamin B-12] 1,000 mcg PO HS Simvastatin [Zocor] 20 mg PO HS Discontinued Meloxicam [Mobic] 15 mg PO HS Discharge Medication List Cyanocobalamin (Vitamin B-12) [Vitamin B-12] 1,000 mcg PO HS 08/27/21 [History] Pantoprazole Sodium [Protonix] 40 mg PO HS 08/27/21 [History] Sertraline [Zoloft] 50 mg PO HS 08/27/21 [History] Simvastatin [Zocor] 20 mg PO HS 08/27/21 [History] Vitamin D3 50,000 Iu 1,250 mcg PO FR 08/27/21 [History] prednisoLONE ACETATE 1% OPHTH [Pred Forte 1%] 1 drop BOTH EYES HS 08/27/21 [History] Follow up Appointment(s)/Referral(s): Janet Bundy MD [REFERRING] - 1 Week Chirag Brito MD [STAFF PHYSICIAN] - 1 Week Patient Instructions/Handouts: Hydrocephalus (DC), Lumbar Puncture (DC) Activity/Diet/Wound Care/Special Instructions: Activity: As tolerated. Take breaks as needed. Diet: Heart healthy and carb consistent diet. Avoid salts, or foods with hidden salts such as canned or boxed foods and frozen dinners. Extra salt makes your heart work harder and traps the fluid in your body for longer. Special Instructions: Take all of your medications as directed and remember to keep all of your doctor's appointments and follow-up as needed. It is important to follow-up with post lumbar puncture discharge instructions as the nurse will be providing to you. Please avoid from NSAID use and/or any heavy lifting. You need to monitor for any dizziness, lightheadness, headache, or any changes in vision as if any of these occur you need to seek medical attention immediately. It is also important to monitor for any redness or drainage from this site, as this will also need to be evaluated by a medical professional immediately. As Dr. Salas discussed with you, it is important to follow up with a neurosurgeon upon returning home to [place]. Thank you for allowing us to participate in your care, it was truly a pleasure having you for our patient!!! Discharge Disposition: HOME SELF-CARE
== END 2021-08-29 19:31 | disposition home or self-care (01) | DRG 57 ==
LOC: EC 18:03 → 6NMEDSUR 08-28 00:14 → OBSVTOIN 08-29 09:59
PROVIDERS: ADMIT Internal Medicine; ATTEND Internal Medicine
PROC: 009U3ZX Drainage of Spinal Canal, Percutaneous Approach, Diagnostic (ICD-10-PCS; principal; 2021-08-29 13:45)
DX: G91.2 (Idiopathic) normal pressure hydrocephalus (principal); N39.0 Urinary tract infection, site not specified; R26.81 Unsteadiness on feet; E78.5 Hyperlipidemia, unspecified; M47.819 Spondylosis without myelopathy or radiculopathy, site unspecified; M50.30 Other cervical disc degeneration, unspecified cervical region; R44.1 Visual hallucinations; M19.90 Unspecified osteoarthritis, unspecified site; H35.30 Unspecified macular degeneration; Z79.899 Other long term (current) drug therapy; Z82.0 Family history of epilepsy and other diseases of the nervous system
CPT/HCPCS: 36415; 62270; 70553; 71045; 72125; 72141; 80053; 82140; 82607; 82746; 83735; 84443; 84484; 85025; 85610; 85730; 88108; 93005; 95816; 96360; 99285

== ENCOUNTER 2021-10-20 11:04 | Observation (INO) | payer MEDICARE, BC ==
--- NOTE | 2021-10-20 15:12 | ED ---
Neuro HPI - General Chief Complaint: Neuro Symptoms/Deficit Stated Complaint: Dizzy Time Seen by Provider: 10/20/21 14:20 Source: patient Mode of arrival: ambulatory Limitations: no limitations - History of Present Illness Is the patient presenting with stroke symptoms?: No Initial Comments: Patient is a 71-year-old female who presents to the emergency room with complaints of dizziness with ambulation greater than approximately 25 feet and slight shuffle in her gait. She states that she was seen by Dr. Salas in the hospital back in August and once via telehealth in his office. She had presented for neurological deficits including hallucinations severe dizziness and ataxia and was diagnosed with normal pressure hydrocephalus in August. She was referred to neurosurgery outpatient but is unable to see neurosurgery until December. She states that she was advised to return to the emergency room if she developed neurological symptoms again. She denies any other focal neuro deficits or hallucinations. She denies any headache nausea or vomiting. Overall she is healthy and has a past medical history only significant for osteoarthritis and macular degeneration. She is currently living in [place] and staying with her daughter. Her primary home is in [place] where her primary care provider is. - Related Data Home Medications: Home Medications Medication Instructions Recorded Confirmed Cyanocobalamin (Vitamin B-12) 1,000 mcg PO HS 08/27/21 08/27/21 [Vitamin B-12] Pantoprazole Sodium [Protonix] 40 mg PO HS 08/27/21 08/27/21 Sertraline [Zoloft] 50 mg PO HS 08/27/21 08/27/21 Simvastatin [Zocor] 20 mg PO HS 08/27/21 08/27/21 Vitamin D3 50,000 Iu 1,250 mcg PO 08/27/21 08/27/21 prednisoLONE ACETATE 1% OPHTH 1 drop BOTH EYES 08/27/21 08/27/21 [Pred Forte 1%] Allergies/Adverse Reactions: Allergies Allergy/AdvReac Type Severity Reaction Status Date / Time meperidine [From Demerol] Allergy Nausea Verified 10/20/21 12:15 Review of Systems ROS Statement: Those systems with pertinent positive or pertinent negative responses have been documented in the HPI. ROS Other: All systems not noted in ROS Statement are negative. General Exam Limitations: no limitations General appearance: alert, in no apparent distress Head exam: Present: atraumatic, normocephalic, normal inspection Eye exam: Present: normal appearance, PERRL, EOMI. Absent: scleral icterus, conjunctival injection, nystagmus, periorbital swelling Pupils: Present: normal accommodation ENT exam: Present: normal exam, mucous membranes moist Neck exam: Present: normal inspection. Absent: tenderness, meningismus, lymphadenopathy Respiratory exam: Present: normal lung sounds bilaterally. Absent: respiratory distress, wheezes, rales, rhonchi, stridor Cardiovascular Exam: Present: regular rate, normal rhythm, normal heart sounds. Absent: systolic murmur, diastolic murmur, rubs, gallop, clicks GI/Abdominal exam: Present: soft, normal bowel sounds. Absent: distended, tenderness, guarding, rebound, rigid Extremities exam: Present: normal inspection, full ROM, normal capillary refill. Absent: tenderness, pedal edema, joint swelling, calf tenderness Back exam: Present: normal inspection Neurological exam: Present: alert, oriented X3, abnormal gait (Slight shuffling with incomplete picking up of her feet), reflexes normal Expanded Cranial nerves: EOM's Intact: Normal, Gag Reflex: Normal, Tongue Deviation: Normal, Nystagmus: Normal, Facial Sensation: Normal, Facial Palsy with Forehead Movement: Normal, Facial Palsy without Forehead Movement: Normal Cerebellar function: Finger to Nose: Normal, Heel to Richards: Normal, Romberg: Normal Upper motor neuron: Gerardo Neglect: Normal, Pronator Drift: Normal DTR: Patellar (R): 2+, Patellar (L): 2+ Eye Response: (4) open spontaneously Motor Response: (6) obeys commands Verbal Response: (5) oriented [place] Total: 15 Psychiatric exam: Present: normal affect, normal mood Skin exam: Present: warm, dry, intact, normal color. Absent: rash Stroke MDM - Medical Decision Making Due to lack of neurological deficits and complications with coordination of outpatient care case discussed with Dr. Barron who previously evaluated and treated patient. He recommended patient may be admitted for therapeutic spinal tap tomorrow by anesthesia. He also recommends family contact neurosurgeon for possible next but aching of her upcoming appointment for shunt placement. No need for diagnostic imaging at this time. Family requesting urinalysis to be completed per requirements of the neurosurgeon. No dysuria, frequency, or urinary incontinence. Will check urinalysis per protocol for neurosurgeon. No concerns for UTI at this time. Case discussed with Dr. Purdy and Dr. Calderon who is covering for city call. Will admit patient for observation stay for spinal tap. Past Medical History Past Medical History: Eye Disorder, Osteoarthritis (OA) Additional Past Medical History / Comment(s): macular degeneration, Corneal transplants. NPH History of Any Multi-Drug Resistant Organisms: None Reported Past Surgical History: No Surgical Hx Reported Past Psychological History: No Psychological Hx Reported Smoking Status: Never smoker Past Alcohol Use History: Rare Past Drug Use History: None Reported Course Vital Signs 10/20/21 12:11 Temperature 98.0 F Pulse Rate 67 Respiratory 20 Rate Blood Pressure 122/64 O2 Sat by Pulse 97 Oximetry Disposition Clinical Impression: Normal pressure hydrocephalus Disposition: ADMITTED IP TO THIS HOSP Condition: Stable Is patient prescribed a controlled substance at d/c from ED?: No Referrals: None,Stated [REFERRING] - 1-2 days Time of Disposition: 15:31
[2021-10-20] MEDS ORDERED: NALOXONE 0.4 MG/ML 1 ML VIAL IV PRN (15:29)
[2021-10-20] MEDS ORDERED: ACETAMINOPHEN TAB 325 MG TAB PO PRN (15:29)
[2021-10-20 16:03] LABS: Basophils % (A) 1 %; Eosinophils # (A) 0.1 k/uL (0-0.7); Eosinophils % (A) 1 %; HCT 37.2 % (34.0-46.0); HGB 12.1 gm/dL (11.4-16.0); Lymphocytes # (A) 1.2 k/uL (1.0-4.8); Lymphocytes % (A) 24 %; MCHC 32.5 g/dL (31.0-37.0); MCV 89.2 fL (80.0-100.0); Mean Platelet Volume 8.2; Monocytes # (A) 0.3 k/uL (0-1.0); Monocytes % (A) 6 %; Neutrophils # (A) 3.5 k/uL (1.3-7.7); Neutrophils % (A) 68 %; Platelet Count 212 k/uL (150-450); RBC 4.17 m/uL (3.80-5.40); RDW 13.3 % (11.5-15.5); WBC 5.2 k/uL (3.8-10.6)
--- NOTE | 2021-10-20 16:25 | P.CNNES ---
History of Present Illness Consult date: 10/20/21 Requesting physician: Padmaja Ocasio Reason for Consult: normal pressure hydrocephalus History of Present Illness: This is a 71 year-old woman with history of normal pressure hydrocephalus who presented to our facility for some unsteady gait and dizziness. Patient is accompanied by her daughter. Patient has been having problems with ambulation greater than 25 feet. Patient is known to me and I personally saw the patient in our facility towards the end of August 2021 and I felt the patient's symptoms were likely due to normal pressure hydrocephalus and the patient had that 30 mL of CSF removed and her walking was drastically better. Patient the was seen in the my clinic via televisit and the I gave her referral to [facility] neurosurgery team but she has an appointment in December 2021 for a possible PHARM TECH shunt for her NPH. She is still pending to be seen by [facility] Neurosurgical team since the team felt it was not urgent and was told she needed another repeat urine analysis to rule out UTI. Patient denies of any further falls. Denies of any other neurological deficits. Per the daughter, since there i a long waiting peroid to see someone at [facility] Neurosurgical team so therefore, she will see someone over at [place] neurosurgical team over end of November,. No further episodes of visual hallucination. Review of Systems Review of system: The 12 point system was reviewed and apparent positive and negative per HPI. Past Medical History Past Medical History: Eye Disorder, Osteoarthritis (OA) Additional Past Medical History / Comment(s): macular degeneration, Corneal transplants. NPH History of Any Multi-Drug Resistant Organisms: None Reported Past Surgical History: No Surgical Hx Reported Past Psychological History: No Psychological Hx Reported Smoking Status: Never smoker Past Alcohol Use History: Rare Past Drug Use History: None Reported Medications and Allergies Home Medications Medication Instructions Recorded Confirmed Type Cyanocobalamin (Vitamin B-12) 1,000 mcg PO HS 08/27/21 08/27/21 History [Vitamin B-12] Pantoprazole Sodium [Protonix] 40 mg PO HS 08/27/21 08/27/21 History Sertraline [Zoloft] 50 mg PO HS 08/27/21 08/27/21 History Simvastatin [Zocor] 20 mg PO 08/27/21 08/27/21 History Vitamin D3 50,000 Iu 1,250 mcg PO 08/27/21 08/27/21 History prednisoLONE ACETATE 1% OPHTH 1 drop BOTH EYES HS 08/27/21 08/27/21 History [Pred Forte 1%] Allergies Allergy/AdvReac Type Severity Reaction Status Date / Time meperidine [From Demerol] Allergy Nausea Verified 10/20/21 12:15 Physical Examination - Vital Signs Vital Signs: Vital Signs Temp Pulse Resp BP Pulse Ox 10/20/21 12:11 98.0 F 67 20 122/64 97 Intake and Output 10/20/21 10/20/21 10/20/21 06:59 14:59 22:59 Other: Weight 90.718 kg GENERAL: The patient is lying in bed and is not in acute distress. CHEST: The heart rate is regular rate rhythm. No murmurs to auscultation. LUNG: Clear to auscultation bilaterally no wheezing noted throughout. Not labored breathing. ABDOMEN/GI: Bowel sounds present in all 4 quadrants. No tenderness to palpation throughout. NEUROLOGICAL: Higher mental function: The patient is awake, alert, oriented to self, place and time. Patient is following commands. No aphasia and no neglect. Cranial nerves: The pupils are round, equal and reactive to light and accommodation. Visual nolasco are full to confrontation throughout. Extraocular movement is intact no nystagmus is noted. Facial sensation is normal to touch throughout. The facial strength is normal throughout. Hearing is normal bilaterally to hand rub. Tongue is midline and moved [id number] without any difficulty. No dysarthria is noted. Shoulder shrug is normal bilaterally. Motor: Gait is minimal unsteady (better than end of 08/2021). The strength is 5 over 5 throughout. Normal tone and bulk. Cerebellum: Normal finger to nose heel to spear bilaterally. Sensation: Sensation is normal to touch throughout. Reflexes (right/left): 2+ throughout. Plantars are mute bilaterally. Results - Laboratory Findings CBC and BMP: 10/20/21 15:54 Assessment and Plan Assessment: Mild unsteady gait and dizziness for past one week likely due to her worsening of normal pressure hydrocephalus and is pending to be evaluated by neurosurgeon on December 2021 Normal pressure hydrocephalus and patient had a large volume tap at the end of August 2021 and she had improvement in her gait History of transient episode of visual hallucination Plan: Anesthesiology is consulted for large volume tap and recommend 15 cc removed. Recommend getting opening and closing pressure. Ordered CT head w/o and orthostatic vitals. After the lumbar puncture if the patient is doing better she's to be monitored for 3-4 hours and if continues to be doing well better she's cleared for discharge from a neurological perspective Recommend the patient to follow up with neurosurgeon and she has a common appointment in end of November 2021 (in [place], [place]) for possible PHARM TECH shunt for her NPH. I highly recommend that she calls and attempts to make a sooner appointment. Every 4 hours neuro checks [facility] and OT for gait training We'll defer the rest of the medical management to primary team Upon discharge the patient to follow-up with my office within 1-2 weeks. The plan is discussed with patient, daughter who is at bedside and ED team. Thank you for the consultation. Cameron Salas M.D. Neuro-hospitalist Time with Patient: Greater than 30
[2021-10-20 16:33] LABS: African American GFR (CKD) >90 (>60 ml/min/1.73 sqM); Anion Gap 5 mmol/L; Blood Urea Nitrogen 16 mg/dL (7-17); Calcium 9.1 mg/dL (8.4-10.2); Carbon Dioxide 25 mmol/L (22-30); Chloride 110 mmol/L (98-107); Glucose 91 mg/dL (74-99); Non-African American GFR(CKD) 81 (>60 ml/min/1.73 sqM); Potassium 3.7 mmol/L (3.5-5.1); Sodium 140 mmol/L (137-145)
--- NOTE | 2021-10-20 17:23 | CT ---
EXAMINATION TYPE: CT brain wo con DATE OF EXAM: 10/20/2021 COMPARISON: 08/26/2021 HISTORY: Dizziness and memory issues. Recently diagnosed with normal pressurizing hydrocephalus. CT DLP: 1196.4 mGycm Automated exposure control for dose reduction was used. There is cerebral cortical atrophy. There is no mass effect or midline shift. No sign of intracranial hemorrhage. Calvarium is intact. The skull base is intact. There is normal aeration of the mastoid s inuses. IMPRESSION: Cerebral atrophy. No acute intracranial abnormality. No change compared to old exam.
[2021-10-20 17:24] LABS: Appearance,Urine Cloudy (Clear); Bacteria,Urine Occasional /hpf; Bilirubin,Urine Negative (Negative); Blood,Urine Small (Negative); Color,Urine Yellow; Glucose,Urine (UA) Negative (Negative); Ketones,Urine Negative (Negative); Leukocyte Esterase,Urine Trace (Negative); Mucus,Urine Many /hpf; Nitrite,Urine Negative (Negative); PH, Urine 6.5 (5.0-8.0); Protein,Urine Trace (Negative); RBC,Urine 9 /hpf (0-5); Squamous Epithelial Cell,Urine 7 /hpf (0-4); WBC,Urine 5 /hpf (0-5)
[2021-10-20] MEDS ORDERED: MELOXICAM 7.5 MG TAB PO SCH (21:00)
[2021-10-20] MEDS ORDERED: ATORVASTATIN 10 MG TAB PO SCH (21:00)
[2021-10-20] MEDS ORDERED: MELATONIN 5 MG TABLET PO SCH (21:00)
[2021-10-20] MEDS ORDERED: PANTOPRAZOLE 40 MG TABLET PO SCH (21:00)
[2021-10-20] MEDS ORDERED: CYANOCOBALAMIN 500 MCG TAB PO SCH (21:00)
[2021-10-20] MEDS ORDERED: prednisoLONE ACETATE 1% OPHTH DROPS 5 ML BTL BOTH EYES SCH (21:00)
--- NOTE | 2021-10-21 07:38 | HP ---
HISTORY AND PHYSICAL 71-year-old white female with normal-pressure hydrocephalus. She was improved with a therapeutic spinal tap about [address] Salas which is greatly improved her. Now her symptoms are returning, for which she came back here. She is supposed to get a shunt done in [place] in the near future. In the meantime, she was admitted here for possibly another therapeutic spinal tap tomorrow as she become dizziness and shuffling gait at home. No signs of dementia, but her symptoms are slowly returning. She wants a spinal tap. It is ordered for tomorrow. Neurology says she can go home 4 hours after spinal tap. PAST MEDICAL HISTORY: Corneal transplants, macular degeneration. NPH, osteoarthritis, eye disorder. Home medicines: Protonix 40 daily, Zoloft 50 daily, Zocor 20 daily, vitamin D 1000 daily, prednisolone eye drops daily, vitamin B12 orally daily. ALLERGIES: DEMEROL. PHYSICAL EXAMINATION: Temp 98.8, pulse 60s, respiratory 18 to 20, blood pressure 120s over 60s, O2 97. Musculoskeletal: She can move 4 extremities. Lungs are clear. Cardiovascular S1-S2. Psych: Fair mood and affect. Abdomen is soft, nontender. She is lying in bed. She appears to be able to move her legs. Cranial nerves appear to be intact at this point. ASSESSMENT: Mild unsteady gait and dizziness for 1 week, possibly normal-pressure hydrocephalus. We are going to order no spinal tap. Dr. Salas neurologist ordered that and possible discharge home after that to follow up as an outpatient for shunt surgery done in [place]. Continue current treatments. Check her labs. Check for UTI. Prognosis guarded. MMODL / IJN: [id number] /
--- NOTE | 2021-10-21 08:41 | P.PN ---
Subjective Progress Note Date: 10/21/21 The patient is seen at bedside and is accompanied by her daughter. Patient has been walking on her own. Denies any new neurological deficits. No falls. Objective - Vital Signs Vital signs: Vital Signs Temp 97.9 F 10/21/21 05:15 Pulse 55 L 10/21/21 05:15 Resp 16 10/21/21 05:15 BP 98/64 10/21/21 05:15 Pulse Ox 97 10/21/21 05:15 FiO2 Intake & Output 10/20/21 10/21/21 10/21/21 18:59 06:59 18:59 Intake Total 5450 Balance 5450 Weight 90.718 kg 90.718 kg Intake: Oral 5450 Other: Voiding Method Toilet # Voids 3 - Exam GENERAL: The patient is lying in bed and is not in acute distress. NEUROLOGICAL: Higher mental function: The patient is awake, alert, oriented to self, place and time. Patient is following commands. No aphasia and no neglect. Cranial nerves: The pupils are round, equal and reactive to light and accommodation. Visual nolasco are full to confrontation throughout. Extraocular movement is intact no nystagmus is noted. Facial sensation is normal to touch throughout. The facial strength is normal throughout. Hearing is normal bilaterally to hand rub. Tongue is midline and moved [id number] without any difficulty. No dysarthria is noted. Shoulder shrug is normal bilaterally. Motor: The strength is 5 over 5 throughout. Normal tone and bulk. Cerebellum: Normal finger to nose heel to spear bilaterally. Sensation: Sensation is normal to touch throughout. Reflexes (right/left): 2+ throughout. Plantars are mute bilaterally. SOME OF THE WORK-UP IN OUR FACILITY DURING THIS HOSPITAL VISIT: CT of the brain is reported as cerebral atrophy. No acute intracranial abnormality. No change compared to old exam. I personally reviewed the CT of the head and I do not see any acute changes on the CT. - Labs CBC & Chem 7: 10/20/21 15:54 10/20/21 15:54 Labs: Abnormal Lab Results - Last 24 Hours (Table) 10/20/21 10/20/21 Range/Units 15:54 16:57 Chloride 110 H (98-107) mmol/L Urine Appearance Cloudy H (Clear) Urine Protein Trace H (Negative) Urine Blood Small H (Negative) Ur Leukocyte Esterase Trace H (Negative) Urine RBC 9 H (0-5) /hpf Ur Squamous Epith Cells 7 H (0-4) /hpf Urine Bacteria Occasional H (None) /hpf Urine Mucus Many H (None) /hpf Assessment and Plan Assessment: Mild unsteady gait and dizziness for past one week likely due to her worsening of normal pressure hydrocephalus and is pending to be evaluated by neurosurgeon on December 2021 Normal pressure hydrocephalus and patient had a large volume tap at the end of August 2021 and she had improvement in her gait History of transient episode of visual hallucination Plan: Anesthesiology is consulted for volume tap and recommend 10-15 cc removed (leaning towards 10cc). Recommend getting opening and closing pressure. After the lumbar puncture if the patient is doing better she's to be monitored for 3-4 hours and if continues to be doing well better she's cleared for discharge from a neurological perspective Recommend the patient to follow up with neurosurgeon and she has a common appointment in end of November 2021 (in [place], [place]) for possible [employer] shunt for her NPH. I highly recommend that she calls and attempts to make a sooner appointment. Every 4 hours neuro checks Consulted PT and OT for gait training We'll defer the rest of the medical management to primary team Upon discharge the patient to follow-up with my office within 1-2 weeks. The plan is discussed with patient, daughter and her nurse. Cameron Salas M.D. Neuro-hospitalist Time with Patient: Less than 30
--- NOTE | 2021-10-21 13:13 | P.PCN ---
Date of Procedure: 10/21/21 Procedure(s) Performed: Preoperative diagnosis: Normal pressure hydrocephalus Post operative diagnoses: Normal pressure hydrocephalus Procedure= large-volume lumbar puncture Anesthesia local infiltration with lidocaine 1% 3 mL. Condition: stable Complication: none. Description of the procedure procedure risk and benefits discussed with the patient and family, consent signed. Patient and the procedure area placed in lateral position ( right side down ), back prepped with chlorhexidine 3 times been local infiltration of the skin and subcutaneous tissue with lidocaine 1% 2 mL for skin and subcu interstitial infiltrations at L4 5 levels then 22-gauge Quincke-type needle advanced slowly at L4- 5 interlaminar space there was positive cerebrospinal fluid which was clear, no heme, no paresthesia ,total of 12 ML of clear cerebrospinal fluid collected in 4 different tubes , then the needle removed and a Band-Aid applied and patient tolerated the procedure well without any complications. opening pressure= 18.2 cm of water.
[2021-10-21 13:45] VITALS: RESP 15; TEMP 97.7
[2021-10-21 14:45] VITALS: PULSE 78
[2021-10-21 14:46] VITALS: BP 92/58
[2021-10-22] MEDS ORDERED: acetaZOLAMIDE 250 MG TAB PO SCH (09:00)
[2021-10-24] MEDS ORDERED: ERGOCALCIFEROL 1,250 MCG (50,000 IU) CAPSULE PO SCH (09:00)
== END 2021-10-21 18:15 ==
LOC: EC 11:04 → 5NMEDONC 14:56
PROVIDERS: ADMIT Family Medicine; ATTEND Family Medicine
DX: G91.2 (Idiopathic) normal pressure hydrocephalus (principal); H35.30 Unspecified macular degeneration; M19.90 Unspecified osteoarthritis, unspecified site; Z79.899 Other long term (current) drug therapy; Z88.5 Allergy status to narcotic agent; Z94.7 Corneal transplant status
CPT/HCPCS: 99285; 97161; 97165; 80048; 85025; 85610; 81001; 70450; 62270; G0378 ×2